=== PATIENT | male | born 1955 | race Caucasian/White ===

== ENCOUNTER → 2018-02-01 | Outpatient (CLI) | payer OTHER ==
--- NOTE | 2018-02-01 11:00 | PCVCIMAG ---
APPROVED REPORT Laterality: Bilateral Indications Stenosis Doppler Spectral Velocity Analysis PSV / EDVPSV / EDV ECA (R) 130 / 19 cm/sECA (L) 93 / 16 cm/s dICA (R) 55 / 17 cm/sdICA (L) 63 / 24 cm/s Misael (R) 65 / 24 cm/smICA (L) 78 / 32 cm/s pICA (R) 76 / 27 cm/spICA (L) 52 / 14 cm/s Bulb (R) 71 / 19 cm/sBulb (L) 69 / 16 cm/s dCCA (R) 81 / 16 cm/sdCCA (L) 98 / 24 cm/s mCCA (R) 104 / 20 cm/smCCA (L) 123 / 34 cm/s Vert (R) 41 / 13 cm/sVert (L) 38 / 11 cm/s ICA/CCA 0.94ICA/CCA 0.80 Findings The right carotid bulb has mild calcified plaque. The right proximal internal carotid artery shows no significant stenosis. The right common carotid artery shows no significant stenosis. The right external carotid artery shows no significant stenosis. The left carotid bulb has minimal plaque. The left proximal internal carotid artery shows no significant stenosis. The left common carotid artery shows no significant stenosis. The left external carotid artery shows no significant stenosis. Conclusion 1. Mild bilateral plaquing without significant stenosis 2. Antegrade vertebral flow
--- NOTE | 2018-02-01 14:44 | PCVCIMAG ---
APPROVED REPORT Study performed: 02/01/2018 11:31:25 Exam: Stress Echocardiogram Indication: CAD s/p CABG, Hyperlipidemia, Dyspnea Patient Location: Echo lab Stress Nurse: Radha Beavers RN Room #: 2 Status: routine Ht: 6 ft 2 in HR: 60 bpm BP: 118/64 mmHg Rhythm: NSR Medical History Medical History: CAD s/p CABG, Hyperlipidemia Cardiac Risk Factors: Hyperlipidemia, FHX of CAD Previous Cardiac Procedures: CABG Pretest Chest Pain Characteristics: No chest pain Exercise History: Indeterminate Procedure The patient underwent an Exercise Stress Test using the Abiola Protocol. Blood pressure, heart rate, and EKG were monitored. An Echocardiogram was performed by control technician in four stages in quad fashion. At peak stress, four selected images were obtained and placed side by side with resting images for comparison. Stress Test Details Stress Test: Exercise stress testing was performed using a Abiola protocol. HR Resting HR: 60 bpmMax Heart Rate (APMHR): 159 bpm Max HR Achieved: 181 bpmTarget HR (85% APMHR): 135 bpm % of APMHR: 113 Recovery HR: 93 bpm HR response to stress: Normal HR response to stress BP Resting BP: 118/64 mmHg Max BP: 174/64 mmHg Recovery BP: 146/70 mmHg ECG Resting ECG: Sinus Rhythm Stress ECG: Sinus Rhythm ST Change: Non-ischemic Arrhythmia: Rare PVCs Recovery ECG: Sinus Rhythm Recovery ST Change: Non-ischemic Recovery Arrhythmia: None Clinical Reason for Termination: Maximal effort Stress Symptoms: Dyspnea, Leg Fatigue Exercise duration: 9 min 58 sec Highest Stage Achieved: Stage 4: 4.2 mph at 16% grade. Exercise capacity: 13 METs Overall Exercise Capacity for Age: Good Scale: Sedentary Angina Score: None No complications. Stress ECG Conclusion The patient exercised according to the ABIOLA protocol for 9:58 mins; achieving a work level of 13.0 METS. The resting heart rate of 60 bpm santosh to a maximum heart rate of 181 bpm. This value represent 113% of the maximal, age-predicted heart rate. The resting blood pressure of 126/76 mmHg, santosh to a maximum blood pressure of 174/64 mmHg. The exercise test was stopped due to fatigue and dyspnea . Pre-Stress Echo The resting Echocardiogram showed normal left ventricular contractility with an estimated Ejection Fraction of about 55-60%. Normal wall motion in all segments on baseline images. Post-Stress Echo The stress Echocardiogram showed normal left ventricular contractility with an estimated Ejection Fraction of about 65-70%. Normal augmentation of wall motion in all segments on post stress images. Clinical No clinical or ECG evidence for ischemia. Conclusion Clinical Response: Non-ischemic Exercise Capacity: Average Stress ECG Response: Non-ischemic Stress Echo Images: Non-ischemic No clinical, EKG or echocardiographic evidence for ischemia. No echocardiographic evidence for exercise induced ischemia. Normal stress echocardiogram with maximal exercise stress. <Conclusion> No clinical, EKG or echocardiographic evidence for ischemia. No echocardiographic evidence for exercise induced ischemia. Normal stress echocardiogram with maximal exercise stress.
== END | disposition home or self-care (01) ==
LOC: PCVCIMAG 10:06
PROVIDERS: ATTEND Internal Medicine Cardiovascular Disease
DX: I65.23 Occlusion and stenosis of bilateral carotid arteries (principal); I25.10 Atherosclerotic heart disease of native coronary artery without angina pectoris; R07.9 Chest pain, unspecified; R06.02 Shortness of breath; E78.00 Pure hypercholesterolemia, unspecified; I77.9 Disorder of arteries and arterioles, unspecified; E78.5 Hyperlipidemia, unspecified; Z95.1 Presence of aortocoronary bypass graft; Z82.49 Family history of ischemic heart disease and other diseases of the circulatory system
CPT/HCPCS: 93325; 93351; 93880